=== PATIENT | female | born 1970 | race Hispanic/Latino ===

== ENCOUNTER 2022-06-25 11:51 | Emergency (ER) | payer OTHER ==
[~2022-06-25] VITALS: Ht 160 cm; Wt 75.4 kg
[2022-06-25] MEDS ORDERED: NAPROSYN500 MG PO (13:48)
[2022-06-25] MEDS ORDERED: NEURONTIN300 MG PO (13:48)
--- OUTSIDE RECORDS SUMMARY | 2022-06-25 14:02 | XMS ---
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 E.D. VISIT COUNT (12 MO.) 2 [facility] 1 MARTINA DavisCynthia TOTAL 3 NOTE: Visits indicate total known visits. ED/UCC VISIT TRACKING (12 MO.) 06/25/2022 11:[address] [facility] [place] TYPE: Emergency COMPLAINT: - ANXIETY, SHAKY, L LEG PAIN, L SIDE FACE TINGLY 06/20/2022 12:56 [facility] [place] TYPE: Emergency DIAGNOSES: - Chest pain, unspecified - CHEST PAIN 05/27/2022 19:25 [facility] [place] TYPE: Emergency DIAGNOSES: - Diarrhea, unspecified - Nausea with vomiting, unspecified - ABD PAIN INPATIENT VISIT TRACKING (12 MO.) No inpatient visits to display in this time frame [email or web address]
--- NOTE | 2022-06-25 18:50 | EKG ---
[facility] [address] [place], [place] [address] Signed Normal sinus rhythm Left axis deviation Abnormal ECG No previous ECGs available Confirmed by MICHAEL COUGHLIN MD ([id number]) on 06/25/2022 6:50:43 PM Electronically Signed By: MICHAEL COUGHLIN MD 06/25/221849 PATIENT NAME: ASKEW SCOOTER ALLISON Electrocardiogram DATE OF : 70 PHYSICIAN: MICHAEL COUGHLIN MD REPORT #: [id number] REPORT IS CONFIDENTIAL AND NOT TO BE RELEASED WITHOUT AUTHORIZATION
== END 2022-06-25 14:07 | disposition home or self-care (01) ==
LOC: ED 11:51
DX: R07.89 Other chest pain (principal); M54.30 Sciatica, unspecified side
CPT/HCPCS: 36415; 70450; 71045; 80053; 84484; 85025; 93005; 93010; 99285-25; A9270-GY